=== PATIENT | male | born 1985 | race Caucasian/White ===

== ENCOUNTER 2016-09-23 17:11 | Emergency (ER) | payer SELFPAY ==
[2016-09-23 18:05] VITALS: BP 145/82
[2016-09-23] MEDS ORDERED: Azithromycin TAB* 250 MG PO ONE (18:13)
--- NOTE | 2016-09-24 14:56 | ED ---
Progress - Progress Note Progress Note: call patient, gc (+), cx pending, chalmydia (-), continue medication. thanks Course/Dx - Diagnoses Provider Diagnoses: STD (male)
--- NOTE | 2016-09-28 22:03 | UC ---
Complaint Male HPI - HPI Summary HPI Summary: 31 RUI OLD MALE PRESENTS WITH COMPLAINS OF PENILE DISCHARGE. - History of Current Complaint Chief Complaint: UCGU Stated Complaint: PERSONAL Time Seen by Provider: 09/23/16 18:00 Hx Obtained From: Patient Onset/Duration: Sudden Onset Timing: Intermittent Severity Initially: Moderate Severity Currently: Moderate Pain Intensity: 0 Pain Scale Used: 0-10 Numeric - 5 Location: Penis Character: Burning Aggravating Factor(s): Straining Associated Signs And Symptoms: Positive: Negative - Allergies/Home Medications Allergies/Adverse Reactions: Allergies Allergy/AdvReac Type Severity Reaction Status Date / Time Penicillins [PCN] Allergy See Comment Verified 09/23/16 18:05 Sulfa Antibiotics Allergy See Comment Verified 09/23/16 18:05 PMH/Surg Hx/FS Hx/Imm Hx Previously Healthy: Yes - Surgical History Surgical History: None - Social History Alcohol Use: None Substance Use Type: None Smoking Status (MU): Heavy Every Day Tobacco Smoker Amount Used/How Often: 1 ppd Review of Systems Constitutional: Negative Skin: Negative Eyes: Negative ENT: Negative Respiratory: Negative Cardiovascular: Negative Gastrointestinal: Negative Genitourinary: Other - PENILE DISCHARGE Motor: Negative Neurovascular: Negative Musculoskeletal: Negative Neurological: Negative Psychological: Negative All Other Systems Reviewed And Are Negative: Yes Physical Exam Triage Information Reviewed: Yes Vital Signs: Initial Vital Signs Temp 36.9 C 09/23/16 17:59 Pulse 92 09/23/16 17:59 Resp 14 09/23/16 17:59 BP 145/82 09/23/16 17:59 Pulse Ox 99 09/23/16 17:59 Vital Signs Reviewed: Yes Eye Exam: Normal ENT Exam: Normal Dental Exam: Normal Neck exam: Normal Neck: Positive: 1 Respiratory Exam: Normal Cardiovascular Exam: Normal Abdominal Exam: Normal Musculoskeletal Exam: Normal Neurological Exam: Normal Psychological Exam: Normal Skin Exam: Normal - Additional Comments YELLOW PENILE DISCHARGE Complaint Male Course/Dx - Differential Dx/Diagnosis Provider Diagnoses: URETHRAL/PENILE DISHCARGE Discharge - Discharge Plan Condition: Stable Disposition: HOME Prescriptions: DOXYcycline CAP(*) [DOXYcycline 100MG CAP(*)] 100 mg PO BID #14 cap Metronidazole [Flagyl 500 MG TAB] 500 mg PO BID #14 tab Patient Education Materials: Nonspecific Urethritis in Men (ED) Referrals: No Primary Care Phys,NOPCP [Primary Care Provider] -
== END 2016-09-23 18:37 | disposition home or self-care (01) ==
LOC: UCCORT 17:11
DX: R36.9 Urethral discharge, unspecified (principal); Z88.0 Allergy status to penicillin; Z88.2 Allergy status to sulfonamides; F17.210 Nicotine dependence, cigarettes, uncomplicated
CPT/HCPCS: 87070; 87077; 87086; 87205; 87491; 87591; 99202; A9270-GY; G0463